=== PATIENT | female | born 1995 | race Caucasian/White ===

== ENCOUNTER 2022-08-24 16:26 | Outpatient (CLI) | payer BC | END 2022-08-24 16:27 | disposition home or self-care (01) | LOC: BICRAD 16:26 | PROVIDERS: ATTEND Nurse Practitioner Family | DX: M54.6 Pain in thoracic spine (principal) | CPT/HCPCS: 72072 ==

== ENCOUNTER 2022-09-10 09:14 | Outpatient (CLI) | payer BC ==
[2022-09-10 11:48] LABS: BHCG - Serum Negative (NEGATIVE); Pregs Control Background? CLEAR/WHITE (CLR/WHITE); Pregs Control Bar Appear? YES (CONTROL BAR)
== END 2022-09-10 09:15 | disposition home or self-care (01) ==
LOC: LABBT 09:14
PROVIDERS: ATTEND Otolaryngology Plastic Surgery within the Head & Neck
DX: Z01.812 Encounter for preprocedural laboratory examination (principal); J35.3 Hypertrophy of tonsils with hypertrophy of adenoids; J35.01 Chronic tonsillitis; J30.9 Allergic rhinitis, unspecified
CPT/HCPCS: 84703; 85014

== ENCOUNTER 2022-09-15 06:55 | Day surgery (SDC) | payer BC ==
[2022-09-15 02:58] VITALS: BMI 39.5
[2022-09-15] MEDS ORDERED: Dexmedetomidine 200 MCG/2 ML VIAL ONE (08:34)
[2022-09-15] MEDS ORDERED: fentaNYL PF 100 MCG/2 ML SYRINGE ONE (08:34)
[2022-09-15] MEDS ORDERED: Dexamethasone 20 MG/5 ML VIAL ONE (08:35)
[2022-09-15] MEDS ORDERED: PROPOFOL 200 MG/20 ML VIAL ONE (08:35)
[2022-09-15] MEDS ORDERED: Ondansetron PF 4 MG/2 ML Vial ONE (08:35)
[2022-09-15] MEDS ORDERED: Rocuronium Bromide 10 MG/ML (10ML VIAL) ONE (08:35)
[2022-09-15] MEDS ORDERED: SUGAMMADEX SODIUM 200 MG/2 ML VIAL ONE ×2 (08:48)
[2022-09-15] MEDS ORDERED: FENTANYL 50 MCG/ML 1 ML VIAL ONE (09:05)
[2022-09-15] MEDS ORDERED: Hydrocodone-Acetamin 15 ML UDCUP ONE (09:44)
[2022-09-15] MEDS ORDERED: Morphine 4 MG/ML VIAL ONE (10:21)
== END 2022-09-15 11:07 | disposition home or self-care (01) ==
LOC: SDC 06:55
PROVIDERS: ATTEND Otolaryngology Plastic Surgery within the Head & Neck
PROC: 0CTPXZZ Resection of Tonsils, External Approach (ICD-10-PCS; principal; 2022-09-15)
PROC: 0CTQXZZ Resection of Adenoids, External Approach (ICD-10-PCS; principal; 2022-09-15)
DX: J35.03 Chronic tonsillitis and adenoiditis (principal); G47.33 Obstructive sleep apnea (adult) (pediatric); J30.9 Allergic rhinitis, unspecified; E66.9 Obesity, unspecified; Z68.39 Body mass index [BMI] 39.0-39.9, adult; Z86.16 Personal history of COVID-19; Z79.82 Long term (current) use of aspirin; Z79.899 Other long term (current) drug therapy
CPT/HCPCS: 88304; J1100; J2270; J2405; J2704; J3010